=== PATIENT | female | born 1995 | race African-American/Black ===

== ENCOUNTER 2016-09-16 11:22 | Emergency (ER) | payer OTHER ==
[~2016-09-16] VITALS: Ht 149.9 cm; Wt 66.0 kg
[2016-09-16 15:43] VITALS: BP 119/79
[2016-09-16] MEDS ORDERED: HYDROCODONE/ACETAMINOPHEN 5/325MG TABLET PO ONE (15:45)
== END 2016-09-16 16:49 | disposition home or self-care (01) ==
LOC: ER 13:53
DX: S92.061A Displaced intraarticular fracture of right calcaneus, initial encounter for closed fracture (principal); W10.9XXA Fall (on) (from) unspecified stairs and steps, initial encounter; Y93.89 Activity, other specified; Y92.89 Other specified places as the place of occurrence of the external cause; Y99.8 Other external cause status
CPT/HCPCS: 29515; 73610; 73630; 81025; 99284; Z7610